=== PATIENT | male | born 1970 ===

== ENCOUNTER 2018-09-09 09:18 | Emergency (ER) | payer OTHER ==
[2018-09-09 09:37] VITALS: BP 132/88; PULSE 71; RESP 16; TEMP 98.1; O2SAT 100
[2018-09-09] MEDS ORDERED: Oxycodone/Acetaminophen 5/325 mg Tab PO STA (10:11)
--- NOTE | 2018-09-09 10:40 | ED PDOC ---
Upper Extremity Pain/Injury Time Seen by Provider: 09/09/18 10:11 Chief Complaint (Nursing): Upper Extremity Problem/Injury Chief Complaint (Provider): R shoulder pain History Per: Patient Additional Complaint(s): Pt reports R shoulder pain after trip and fall 3 days ago, took Ibuprofen at home. Denies head trauma. Past Medical History Reviewed: Nursing Documentation, Vital Signs Vital Signs: Last Vital Signs Temp 98.1 F 09/09/18 09:35 Pulse 71 09/09/18 09:35 Resp 16 09/09/18 09:35 BP 132/88 09/09/18 09:35 Pulse Ox 100 09/09/18 09:35 - Medical History PMH: No Chronic Diseases - Family History Family History: States: Unknown Family Hx - Social History Current smoker - smoking cessation education provided: No Alcohol: None - Home Medications Home Medications: Ambulatory Orders Medication Instructions Recorded Naproxen [Naprosyn] 500 mg PO BID PRN #15 tablet 09/09/18 - Allergies Allergies/Adverse Reactions: Allergies Allergy/AdvReac Type Severity Reaction Status Date / Time No Known Allergies Allergy Verified 09/09/18 09:35 Review of Systems Musculoskeletal: Positive for: Shoulder Pain. Negative for: Arm Pain Physical Exam - Reviewed Nursing Documentation Reviewed: Yes Vital Signs Reviewed: Yes - Physical Exam Appears: Positive for: Well, No Acute Distress Head Exam: Positive for: ATRAUMATIC, NORMAL INSPECTION Skin: Positive for: Normal Color, Warm, Dry Eye Exam: Positive for: Normal appearance, EOMI, PERRL Extremity: Positive for: Tenderness (R shoulder), Capillary Refill (<2 sec), Other (No deformity). Negative for: Normal ROM, Deformity, Swelling Neurologic/Psych: Positive for: Alert, Oriented - ECG O2 Sat by Pulse Oximetry: 100 Medical Decision Making Medical Decision Makin yo male with R shoulder pain s/p fall. - XR R shoulder - Percocet Accession No. : [id number] Patient Name / ID : JOSE MATHIS / [id number] Exam Date : 09/09/2018 10:27:19 ( Approved ) Study Comment : Sex / Age : M / [id number] Creator : Ruben Bazzi MD Dictator : Ruben Bazzi MD Mophead Trimmer And Wrapper : Pipe Smoking Machine Offbearer : Ruben Bazzi MD Approver2 : Report Date : 09/09/2018 11:31:59 My Comment : Date of service: 09/09/2018 PROCEDURE: Radiographs of the Right Shoulder HISTORY: Fall COMPARISON: No prior. FINDINGS: BONES: Normal. No fracture. JOINTS: Normal. Glenohumeral and acromioclavicular joints preserved. No osteoarthritis. SOFT TISSUES: Normal. OTHER FINDINGS: None. IMPRESSION: Normal radiographs of the right shoulder. Disposition - Clinical Impression Clinical Impression: Shoulder contusion - Patient ED Disposition Is Patient to be Admitted: No - Disposition Referrals: [facility] [place] [Outside] Disposition: Routine/Home Disposition Time: 12:08 Condition: STABLE Prescriptions: Naproxen [Naprosyn] 500 mg PO BID PRN #15 tablet PRN Reason: Pain, Moderate (4-7) Instructions: Contusion (DC), Shoulder Pain (DC) Forms: [email or web address] (Portuguese) Print Language: CROATIAN
--- NOTE | 2018-09-09 11:35 | RAD ---
Date of service: 09/09/2018 PROCEDURE: Radiographs of the Right Shoulder HISTORY: Fall COMPARISON: No prior. FINDINGS: BONES: Normal. No fracture. JOINTS: Normal. Glenohumeral and acromioclavicular joints preserved. No osteoarthritis. SOFT TISSUES: Normal. OTHER FINDINGS: None. IMPRESSION: Normal radiographs of the right shoulder.
== END 2018-09-09 12:25 | disposition home or self-care (01) ==
LOC: H.ER 09:18
DX: S40.011A Contusion of right shoulder, initial encounter (principal); W19.XXXA Unspecified fall, initial encounter; Y92.89 Other specified places as the place of occurrence of the external cause